=== PATIENT | female | born 1955 | race Caucasian/White ===

== ENCOUNTER 2019-01-10 13:51 | Emergency (ER) | payer OTHER ==
[~2019-01-10] VITALS: Ht 160 cm; Wt 91.6 kg
[2019-01-10 14:04] VITALS: BP 150/82; Ht 160 cm; Wt 91.6 kg
== END 2019-01-10 15:02 | disposition home or self-care (01) ==
LOC: ED 13:51
DX: T81.49XA Infection following a procedure, other surgical site, initial encounter (principal); I10 Essential (primary) hypertension
CPT/HCPCS: J2001